=== PATIENT | male | born 1955 | race Hispanic/Latino ===

== ENCOUNTER 2016-05-24 16:35 | Emergency (ER) | payer OTHER ==
[~2016-05-24] VITALS: Ht 167.6 cm; Wt 124.7 kg
[2016-05-24] MEDS ORDERED: KETOROLAC 60 MG/2 ML (TORADOL) VIAL IM ONE (17:05)
[2016-05-24] MEDS ORDERED: NF-DICLOTA PO (17:12)
[2016-05-24] MEDS ORDERED: BUME1TAB4 PO (17:12)
[2016-05-24] MEDS ORDERED: PRAV10TA PO (17:12)
[2016-05-24] MEDS ORDERED: NEBI5TAB8 PO (17:12)
[2016-05-24] MEDS ORDERED: ENAL10TA PO (17:12)
[2016-05-24] MEDS ORDERED: METF850T2 PO (17:12)
[2016-05-24] MEDS ORDERED: INDO50CA PO (17:13)
[2016-05-24] MEDS ORDERED: [UNRECOGNIZED DRUG - OTHER] PO (17:29)
[2016-05-24] MEDS ORDERED: BEZAFIBRATO PO (17:29)
[2016-05-24] MEDS ORDERED: [UNRECOGNIZED DRUG - OTHER] PO (17:29)
[2016-05-24] MEDS ORDERED: ANORO PO (17:29)
[2016-05-24] MEDS ORDERED: ALLO100T PO (17:29)
[2016-05-24 17:47] VITALS: BP 116/60
== END 2016-05-24 17:40 | disposition home or self-care (01) ==
LOC: ED 16:36
DX: M10.072 Idiopathic gout, left ankle and foot (principal)
CPT/HCPCS: 96372; 99282; J1885; 99283

== ENCOUNTER → 2016-05-24 | Outpatient (CLI) | payer SELFPAY ==
[~2016-05-24] MED LIST: ALLO100T PO; ANORO PO; BEZAFIBRATO PO; BUME1TAB4 PO; ENAL10TA PO; INDO50CA PO; METF850T2 PO; NEBI5TAB8 PO; NF-DICLOTA PO; PRAV10TA PO; [UNRECOGNIZED DRUG - OTHER] PO; [UNRECOGNIZED DRUG - OTHER] PO
--- NOTE | 2016-05-24 17:02 | Urgent Care T Sheet Gen (E) ---
Respiratory Constitutional Symptoms: No syptoms reported All Other Systems Reviewed Remaining Systems: All other systems reviewed with negative findings Physical Exam Physical Exam General Appearance: WD/WN Departure Urgent Care Impression Impression: Primary Impression: Swelling of lower extremity Departure Departed Disposition: To [facility] ED Condition: Stable Additional Instructions: The patient presents with new onset L LE swelling, warmth and pain since last night. Patient also notes intermittent numbness along the plantar aspect of the L foot. Patient has a history of gout for which he takes allopurinol as well as diabetes and DVT. Patient takes several medications and has them all with him, however all are in [place]. I am unsure if the patient is suffering from gout or DVT, since he has a history of both, therefore I sent him to the ER for a more complete workup. Report called. Patient and family are arriving via private vehicle. End of report . ERSI BAEZ May 24, 2016 17:02
== END ==
LOC: MHUC 16:01
PROVIDERS: ATTEND Physician Assistant
DX: M79.89 Other specified soft tissue disorders (principal)